=== PATIENT | male | born 1980 | race Caucasian/White ===

== ENCOUNTER 2023-02-22 05:23 | Emergency (ER) | payer BC ==
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
[2023-02-22] MEDS ORDERED: Sodium Chloride 0.9% 1000 ML 1,000 ML IV STA (06:01)
[2023-02-22] MEDS ORDERED: MORPHINE SULFATE 2 MG INJ IV ONE (06:01)
[2023-02-22] MEDS ORDERED: SILVADENE 50 GM TP ONE ×2 (06:02→06:10)
[2023-02-22] MEDS ORDERED: Sodium Chloride 0.9% 1000 ML 1,000 ML ONE (06:10)
[2023-02-22] MEDS ORDERED: MORPHINE SULFATE 2 MG INJ ONE (06:10)
[2023-02-22] MEDS ORDERED: Hydromorphone 1 mg/ml Injection IV ONE (06:46)
[2023-02-22] MEDS ORDERED: Hydromorphone 1 mg/ml Injection ONE (06:49)
[2023-02-22 07:02] VITALS: PULSE 89
[2023-02-22 07:55] VITALS: BP 119/85
[2023-02-22 07:57] VITALS: O2SAT 100
== END 2023-02-22 08:03 | disposition home or self-care (01) ==
LOC: ED 05:23
DX: T25.222A Burn of second degree of left foot, initial encounter (principal); T25.221A Burn of second degree of right foot, initial encounter; X12.XXXA Contact with other hot fluids, initial encounter; Z28.310 Unvaccinated for COVID-19; Z79.891 Long term (current) use of opiate analgesic
CPT/HCPCS: 36000; 96360; 96374; 96375; 99284; J1170; J2270; A9270-GY